=== PATIENT | female | born 1980 | race American Indian/Alaskan Native ===

== ENCOUNTER 2018-12-21 00:05 | Emergency (ER) | payer OTHER ==
[2018-12-21] MEDS ORDERED: ASPIRIN PO ONE (00:21)
--- NOTE | 2018-12-21 00:54 | XRay Report ---
PROCEDURE: XR CHEST 1V AP TECHNIQUE: Chest radiograph single view. HISTORY: Chest Pain COMPARISONS: None . FINDINGS: Heart: Normal. Mediastinum/Vessels: Normal. Lungs/Pleural space: Normal. Bony thorax: No acute osseous abnormality. Life support devices: None. IMPRESSION: No acute cardiopulmonary abnormality. This document is electronically signed by Tiesha Hamilton DO., December 21 2018 12:51:55 AM ET
[2018-12-21 01:13] LABS: Hematocrit 24.9 % (30.3-42.9); Hemoglobin 7.5 gm/dl (10.1-14.3); Mean Corpuscular HGB Conc 30 % (30-34); Platelet Count 236 K/mm3 (140-440); Red Blood Count 4.11 M/mm3 (3.65-5.03); Red Cell Distribution Width 19.6 % (13.2-15.2)
[2018-12-21 01:14] LABS: Mean Corpuscular Volume 61 fl (79-97)
[2018-12-21 01:21] LABS: BUN/Creatinine Ratio 15; Blood Urea Nitrogen 12 mg/dL (7-17); Calcium 9.8 mg/dL (8.4-10.2); Hemolysis Index 8
[2018-12-21] MEDS ORDERED: ATROVENT IH ONE (03:21)
[2018-12-21] MEDS ORDERED: PROVENTIL IH ONE (03:21)
[2018-12-21] MEDS ORDERED: TORADOL IV ONE (03:22)
[2018-12-21 04:12] LABS: Anisocytosis 1+; Basophils % (Manual) 0 % (0.0-1.8); Hypochromasia 2+; Ovalocytes 1+; Total Cells Counted 100
[2018-12-21 04:22] LABS: INR 0.96 (0.87-1.13)
--- NOTE | 2018-12-21 05:17 | Emergency Department Report ---
ED Chest Pain HPI - General Chief Complaint: Chest Pain Stated Complaint: CHEST ARM PAIN SOB DRY MOUTH Time Seen by Provider: 12/21/18 01:57 Source: patient Mode of arrival: Ambulatory Limitations: No Limitations - History of Present Illness Initial Comments: 37-year-old female presents to ED with left-sided chest pain 2 days. She says pain is worse with movement of torso, lifting of left arm. Patient reports dry cough, voice is hoarse. She denies pleuritic component. Reports mild chest pain. Denies fever. MD Complaint: chest pain -: days(s) (2) Onset: during rest Pain Location: left chest Pain Radiation: other (left shoulder) Severity: moderate Severity scale (0 -10): 8 Quality: tightness Improves With: remaining still Worsens With: palpation, movement re: dyspnea. denies: nausea, vomting, diaphoresis Other Symptoms: cough. denies: fever, leg swelling - Related Data Previous Rx's Medication Instructions Recorded Last Taken Type ALBUTEROL Inhaler(NF) [VENTOLIN 1 puff IH Q4HR PRN #1 inha 12/21/18 Unknown Rx Inhaler(NF)] Benzonatate [Tessalon Perles] 100 mg PO Q8HR PRN #20 capsule 12/21/18 Unknown Rx Methocarbamol [Robaxin-750] 750 mg PO Q6HR PRN #20 tablet 12/21/18 Unknown Rx Naproxen [Naprosyn] 500 mg PO BID #20 tablet 12/21/18 Unknown Rx Allergies Allergy/AdvReac Type Severity Reaction Status Date / Time No Known Allergies Allergy Verified 12/21/18 02:22 Heart Score - HEART Score History: Slightly suspicious EKG: Normal Age: < 45 Risk factors: 1-2 risk factors Troponin: < normal limit HEART Score: 1 ED Review of Systems ROS: Stated complaint: CHEST ARM PAIN SOB DRY MOUTH Other details as noted in HPI Comment: All other systems reviewed and negative Constitutional: denies: chills, fever ENT: denies: throat pain Respiratory: cough, shortness of breath Cardiovascular: chest pain Gastrointestinal: denies: nausea, vomiting Musculoskeletal: other (denies leg pain and swelling) ED Past Medical Hx - Past Medical History Previous Medical History?: Yes Hx Diabetes: Yes ("don't have it anymore") - Surgical History Past Surgical History?: Yes Additional Surgical History: gastric sleeve 2013 - Social History Smoking Status: Current Every Day Smoker Substance Use Type: None - Medications Home Medications: Home Medications Medication Instructions Recorded Confirmed Last Taken Type ALBUTEROL Inhaler(NF) [VENTOLIN 1 puff IH Q4HR PRN #1 inha 12/21/18 Unknown Rx Inhaler(NF)] Benzonatate [Tessalon Perles] 100 mg PO Q8HR PRN #20 capsule 12/21/18 Unknown Rx Methocarbamol [Robaxin-750] 750 mg PO Q6HR PRN #20 tablet 12/21/18 Unknown Rx Naproxen [Naprosyn] 500 mg PO BID #20 tablet 12/21/18 Unknown Rx ED Physical Exam - General Limitations: No Limitations General appearance: alert, in no apparent distress - Head Head exam: Present: atraumatic, normocephalic - Eye Eye exam: Present: normal appearance - ENT ENT exam: Present: mucous membranes moist, other (voice is hoarse) - Neck Neck exam: Present: normal inspection - Respiratory Respiratory exam: Present: normal lung sounds bilaterally, chest wall tenderness. Absent: respiratory distress - Cardiovascular Cardiovascular Exam: Present: regular rate, normal rhythm - GI/Abdominal GI/Abdominal exam: Present: soft. Absent: distended, tenderness - Extremities Exam Extremities exam: Absent: pedal edema, calf tenderness - Neurological Exam Neurological exam: Present: alert, oriented X3 - Psychiatric Psychiatric exam: Present: normal affect, normal mood - Skin Skin exam: Present: warm, dry, intact, normal color ED Course Vital Signs 12/21/18 12/21/18 00:18 02:34 Temperature 97.9 F Pulse Rate 88 71 Respiratory 16 22 Rate Blood Pressure 135/86 Blood Pressure 120/76 [Left] O2 Sat by Pulse 96 Oximetry ED Medical Decision Making - Lab Data Result diagrams: 12/21/18 00:42 12/21/18 00:42 - EKG Data -: EKG Interpreted by Ks EKG shows normal: sinus rhythm, axis, intervals, QRS complexes, ST-T waves Rate: normal - EKG Data Interpretation: no acute changes - Radiology Data Radiology results: report reviewed, image reviewed - Medical Decision Making 37-year-old female with chest wall tenderness on exam. Patient actively coughing throughout exam. Likely costochondritis. Toradol and albuterol nebs given. Labs normal, EKG shows no ST changes, troponin negative. also negative. Chest x-ray normal. Will discharge with prescription for naprosyn, tessalon, albuterol MDI, robaxin. Outpatient follow-up advised. Return precautions given. - Differential Diagnosis costochondritis, pneumonia, viral illness, PE, ACS Critical care attestation.: If time is entered above; I have spent that time in minutes in the direct care of this critically ill patient, excluding procedure time. ED Disposition Clinical Impression: Costochondritis, URI (upper respiratory infection) Disposition: TO HOME OR SELFCARE Is pt being admited?: No Condition: Stable Instructions: Costochondritis (ED) Prescriptions: Naproxen [Naprosyn] 500 mg PO BID #20 tablet Methocarbamol [Robaxin-750] 750 mg PO Q6HR PRN #20 tablet PRN Reason: Spasms Benzonatate [Tessalon Perles] 100 mg PO Q8HR PRN #20 capsule PRN Reason: Cough ALBUTEROL Inhaler(NF) [VENTOLIN Inhaler(NF)] 1 puff IH Q4HR PRN #1 inha PRN Reason: Wheezing Referrals: [facility] [Provider Group] - 3-5 Days Time of Disposition: 05:22
[2018-12-21 06:15] VITALS: BP 122/74
== END 2018-12-21 06:14 | disposition home or self-care (01) ==
LOC: ED 00:05
DX: M94.0 Chondrocostal junction syndrome [Tietze] (principal); J06.9 Acute upper respiratory infection, unspecified; E11.9 Type 2 diabetes mellitus without complications; F17.200 Nicotine dependence, unspecified, uncomplicated
CPT/HCPCS: 36415; 71045; 80048; 84484; 85007; 85025; 85379; 85610; 85730; 93005; 93010; 94640; 96374; 99284; J1885

== ENCOUNTER 2021-02-08 13:45 | Emergency (ER) | payer SELFPAY ==
[2021-02-08 15:10] VITALS: BP 119/67
[2021-02-08] MEDS ORDERED: ACETAMINOPHEN 500 MG TAB PO ONE (16:28)
--- NOTE | 2021-02-08 16:28 | Emergency Department Report ---
ED General Adult HPI - General Chief complaint: Back Pain/Injury Stated complaint: CONCETTA/RT SIDE PAIN Time Seen by Provider: 02/08/21 16:07 Source: patient Mode of arrival: Ambulatory Limitations: No Limitations - History of Present Illness Initial comments: 40 year old female who reports no significant past medical history presents to ED with complaints of right rib/flank pain. She states that the pain started last night. She stated was mild but today when she woke up and started moving around and doing her regular activities got worse. She states that she feels the pain inside, does not seem to be when she touches the area but it also hurts when she moves in certain positions when she moves her upper torso and her right upper arm and when she moves from a sitting to a standing position. She also complains of pain when she takes a deep breath and is having difficulty breathing secondary to that. She denies any recent cough or colds. She denies any known injury to her ribs or flank area. She denies any associate abdominal pain. She denies any nausea vomiting, UTI symptoms, bowel changes, lower extremity swelling or calf pain. She denies similar symptoms in the past. MD Complaint: Right rib/flank pain -: Last night Location: chest, back - Related Data Previous Rx's Medication Instructions Recorded Last Taken Type Ketorolac [Toradol] 10 mg PO Q6H PRN #20 tablet 02/08/21 Unknown Rx Lidocaine [Lidoderm] 1 each TP Q12HR #10 adh..patch 02/08/21 Unknown Rx methOCARBAMOL [Robaxin TAB] 750 mg PO Q8H PRN #30 tablet 02/08/21 Unknown Rx Allergies Allergy/AdvReac Type Severity Reaction Status Date / Time No Known Allergies Allergy Verified 12/21/18 02:22 ED Review of Systems ROS: Stated complaint: CONCETTA/RT SIDE PAIN Other details as noted in HPI Comment: All other systems reviewed and negative Constitutional: denies: chills, fever Eyes: denies: eye pain, eye discharge, vision change ENT: denies: ear pain, throat pain, dental pain, hearing loss, epistaxis, congestion Respiratory: shortness of breath, other (Pleuritic right-sided chest pain). denies: cough, orthopnea, SOB with exertion, SOB at rest Cardiovascular: chest pain (Right-sided chest pain) Gastrointestinal: denies: abdominal pain, nausea, vomiting, diarrhea, constipation, hematemesis, hematochezia Genitourinary: denies: urgency, dysuria, frequency, hematuria, discharge, abnormal menses, dyspareunia Musculoskeletal: denies: back pain, joint swelling, arthralgia Skin: denies: rash, lesions Neurological: denies: headache, weakness, numbness, paresthesias, confusion, abnormal gait, vertigo Psychiatric: denies: anxiety, depression, auditory hallucinations, visual hallucinations, homicidal thoughts, suicidal thoughts Hematological/Lymphatic: denies: easy bleeding, easy bruising ED Past Medical Hx - Past Medical History Previous Medical History?: Yes Hx Diabetes: Yes ("don't have it anymore") - Surgical History Past Surgical History?: Yes Additional Surgical History: gastric sleeve 2013 - Social History Smoking Status: Current Every Day Smoker Substance Use Type: None - Medications Home Medications: Home Medications Medication Instructions Recorded Confirmed Last Taken Type Ketorolac [Toradol] 10 mg PO Q6H PRN #20 tablet 02/08/21 Unknown Rx Lidocaine [Lidoderm] 1 each TP Q12HR #10 adh..patch 02/08/21 Unknown Rx methOCARBAMOL [Robaxin TAB] 750 mg PO Q8H PRN #30 tablet 02/08/21 Unknown Rx ED Physical Exam - General Limitations: No Limitations General appearance: alert, in no apparent distress - Head Head exam: Present: atraumatic, normocephalic, normal inspection - Eye Eye exam: Present: normal appearance, PERRL, EOMI Pupils: Present: normal accommodation - ENT ENT exam: Present: normal exam, mucous membranes moist, TM's normal bilaterally - Neck Neck exam: Present: normal inspection, full ROM - Respiratory Respiratory exam: Present: normal lung sounds bilaterally, chest wall tenderness (right lateral lower chest wall - reproduces pain ). Absent: respiratory distress, wheezes, rales, rhonchi - Cardiovascular Cardiovascular Exam: Present: regular rate, normal rhythm, normal heart sounds - GI/Abdominal GI/Abdominal exam: Present: soft. Absent: distended, tenderness, guarding, rebound - Back Exam Back exam: Present: normal inspection. Absent: CVA tenderness (R), CVA tenderness (L), paraspinal tenderness, vertebral tenderness - Neurological Exam Neurological exam: Present: alert, oriented X3, CN II-XII intact, normal gait - Psychiatric Psychiatric exam: Present: normal affect, normal mood - Skin Skin exam: Present: intact ED Course Vital Signs 02/08/21 15:09 Temperature 98 F Pulse Rate 76 Respiratory 16 Rate Blood Pressure 119/67 [Right] O2 Sat by Pulse 98 Oximetry ED Medical Decision Making - Lab Data Result diagrams: 02/08/21 16:43 02/08/21 16:43 - EKG Data EKG shows normal: sinus rhythm Rate: normal (80) - EKG Data Interpretation: normal EKG - Radiology Data Radiology results: report reviewed Patient: KESHA LEWIS MR#: [id number] 7 : 1980 Acct:[id number] Age/Sex: 40 / F ADM Date: 02/08/21 Loc: ED Attending Dr: Ordering Physician: REJI CONDE Date of Service: 02/08/21 Procedure(s): XR chest routine 2V Accession Number(s): [id number] cc: REJI CONDE Fluoro Time In Minutes: CHEST 2 VIEWS INDICATION / CLINICAL INFORMATION: pleuritic right sided chest pain. COMPARISON: None available. FINDINGS: SUPPORT DEVICES: None. HEART / MEDIASTINUM: No significant abnormality. LUNGS / PLEURA: No significant pulmonary or pleural abnormality. No pneumothorax. ADDITIONAL FINDINGS: No significant additional findings. IMPRESSION: 1. No acute findings. Signer Name: Jeff Diaz MD Signed: 02/08/2021 5:36 PM Workstation Name: [id number] Transcribed By: CHRIS Dictated By: Jeff Diaz MD Electronically Authenticated By: Jeff Diaz MD Signed Date/Time: 02/08/211735 DD/ 34 TD/TT: - Medical Decision Making 40 year old female who reports no significant past medical history presents to ED with complaints of right rib/flank pain. She states that the pain started last night. She stated was mild but today when she woke up and started moving around and doing her regular activities got worse. She states that she feels the pain inside, does not seem to be when she touches the area but it also hurts when she moves in certain positions when she moves her upper torso and her right upper arm and when she moves from a sitting to a standing position. She also complains of pain when she takes a deep breath and is having difficulty breathing secondary to that. She denies any recent cough or colds. She denies any known injury to her ribs or flank area. She denies any associate abdominal pain. She denies any nausea vomiting, UTI symptoms, bowel changes, lower extremity swelling or calf pain. She denies similar symptoms in the past. Labs/EKG/cxr reviewed - nothing acute on work up today. Patient currently in no significant distress. She is well appearing and not toxic and in no respiratory distress. She is well hydrated, neurologically intact and ambulatory in ED. The patient's history, exam, diagnostic testing and current condition do not suggest that this patient is having acute myocardial infarction, significant arrhythmia, unstable angina, esophageal perforation, pulmonary embolism (PERC 0), aortic dissection, pneumothorax, severe pneumonia, pyelonephritis, kidney stone, epidural abscess, sepsis or other significant pathology that would warrant further testing, continued ED treatment, admission or cardiology or other specialist consultation at this time. Patient does have TTP to chest wall on exam and so her pain could be musculoskeletal related at this time. Her vital signs have been stable. Discussed lab results, suspected dx and treatment plan with patient. The patient's condition is stable and appropriate for discharge. The patient will pursue further outpatient evaluation with the primary care physician. Critical care attestation.: If time is entered above; I have spent that time in minutes in the direct care of this critically ill patient, excluding procedure time. ED Disposition Clinical Impression: Chest wall pain Disposition: DC-01 TO HOME OR SELFCARE Is pt being admited?: No Does the pt Need Aspirin: No Condition: Stable Instructions: Chest Wall Pain, [id number], Nonspecific Chest Pain, Adult Additional Instructions: Take the motrin, flexeril and lidoderm patch as instructed. Follow up with PCP this week. Return to ED if worse. Prescriptions: Lidocaine [Lidoderm] 1 each TP Q12HR #10 adh..patch methOCARBAMOL [Robaxin TAB] 750 mg PO Q8H PRN #30 tablet PRN Reason: Muscle Spasm Ketorolac [Toradol] 10 mg PO Q6H PRN #20 tablet PRN Reason: Pain Referrals: AMPARO SANCHEZ MD [Staff Physician] - 3-5 Days Forms: Work/School Release Form(ED) Time of Disposition: 18:34
[2021-02-08 17:11] LABS: Bilirubin,Urine NEG (Negative); Blood,Urine NEG (Negative); Color,Urine Straw (Yellow); Protein,Urine <15 mg/dL mg/dL (Negative); Urobilinogen,Urine < 2.0 mg/dL (<2.0); WBC,Urine < 1.0 /HPF (0.0-6.0)
[2021-02-08 17:28] LABS: Alanine Aminotransferase 13 units/L (7-56); Albumin 4.4 g/dL (3.9-5); BUN/Creatinine Ratio 14; Blood Urea Nitrogen 11 mg/dL (7-17); Calcium 9.2 mg/dL (8.4-10.2); Hemolysis Index 2
--- NOTE | 2021-02-08 17:40 | XRay Report ---
CHEST 2 VIEWS INDICATION / CLINICAL INFORMATION: pleuritic right sided chest pain. COMPARISON: None available. FINDINGS: SUPPORT DEVICES: None. HEART / MEDIASTINUM: No significant abnormality. LUNGS / PLEURA: No significant pulmonary or pleural abnormality. No pneumothorax. ADDITIONAL FINDINGS: No significant additional findings. IMPRESSION: 1. No acute findings. Signer Name: Jeff Diaz MD Signed: 02/08/2021 5:36 PM Workstation Name: [id number]
[2021-02-08 17:51] LABS: Hematocrit 27.2 % (30.3-42.9); Hemoglobin 8.1 gm/dl (10.1-14.3); Mean Corpuscular HGB Conc 30 % (30-34); Platelet Count 233 K/mm3 (140-440); Red Blood Count 4.37 M/mm3 (3.65-5.03)
[2021-02-08 17:57] LABS: Mean Corpuscular Volume 62 fl (79-97)
[2021-02-08 18:43] LABS: Anisocytosis 1+; Hypochromasia 2+; Ovalocytes 1+; Total Cells Counted 100
== END 2021-02-08 19:04 | disposition home or self-care (01) ==
LOC: ED 13:45
DX: R07.89 Other chest pain (principal); E11.9 Type 2 diabetes mellitus without complications; F17.200 Nicotine dependence, unspecified, uncomplicated; Z79.899 Other long term (current) drug therapy; Z98.890 Other specified postprocedural states
CPT/HCPCS: 36415; 71046; 80053; 81001; 83690; 84484; 84703; 85007; 85025; 85379